=== PATIENT | male | born 1980 | race Caucasian/White ===

== ENCOUNTER 2016-10-06 04:30 | Emergency (ER) | payer OTHER ==
[2016-10-06 05:03] VITALS: BMI 34.9
--- NOTE | 2016-10-06 05:26 | PDOC ---
History of Present Illness - General History Source: Patient Exam Limitations: No Limitations - History of Present Illness Initial Comments: 10/06/16 05:32 The patient is a 35 year old male with a PMHx of kidney stones who presents to the ED with right flank pain that woke him up. He reports associated nausea, but no vomiting. He states the pain is similar to kidney stone in the past. He also complains of right testicular pain. He reports it has been a while since he last had kidney stones. He denies fever, diarrhea. He denies recent travel. <Deb Price - Last Filed: 10/06/16 05:31> - General History Source: Patient <Bryon Fontenot - Last Filed: 10/06/16 19:46> - General Chief Complaint: Pain, Acute Stated Complaint: ABD PAIN Time Seen by Provider: 10/06/16 05:24 Past History <Deb Price - Last Filed: 10/06/16 05:31> - Past Medical History Disorders: Yes Kidney Stones: Yes - Immunization History Immunization Up to Date: Yes - Psycho/Social/Smoking Cessation Hx Anxiety: No Suicidal Ideation: No Smoking Status: No Smoking History: Never smoked Have you smoked in the past 12 months: No Number of Cigarettes Smoked Daily: 0 Information on smoking cessation initiated: No Hx Alcohol Use: No Drug/Substance Use Hx: No Substance Use Type: Marijuana <Bryon Fontneot - Last Filed: 10/06/16 19:46> - Past Medical History Allergies/Adverse Reactions: Allergies Allergy/AdvReac Type Severity Reaction Status Date / Time diphenhydramine HCl Allergy Verified 10/06/16 05:01 [From Bonilla] Home Medications: Ambulatory Orders Ibuprofen 800 mg PO QID #30 tablet 10/06/16 Oxycodone HCl/Acetaminophen [Percocet 5-325 mg Tablet] 1 tab PO Q4H #10 tablet MDD 4 10/06/16 Tamsulosin HCl [Flomax] 0.4 mg PO DAILY #14 cap.er.24h 10/06/16 Review of Systems - Review of Systems Comments:: 10/06/16 05:32 CONSTITUTIONAL: Absent: fever, no chills, no fatigue EYES: Absent: visual changes ENT: Absent: ear pain, no sore throat CARDIOVASCULAR: Absent: chest pain, no palpitations RESPIRATORY: Absent: cough, no SOB GI: Present: nausea Absent: abdominal pain, vomiting, constipation, diarrhea GENITOURINARY: Presnt: right flank pain, right testicular pain Absent: dysuria, no frequency, no hematuria MUSCULOSKELETAL: Absent: back pain, no arthralgia, no myalgia SKIN: Absent: rash NEURO: Absent: headache <Deb Price - Last Filed: 10/06/16 05:31> *Physical Exam - Vital Signs Last Vital Signs Temp Pulse Resp BP Pulse Ox 98.7 F 91 H 14 149/101 100 10/06/16 05:01 10/06/16 05:01 10/06/16 05:01 10/06/16 05:01 10/06/16 05:01 - Physical Exam Comments: 10/06/16 05:33 GENERAL: Well-appearing, well-nourished. No apparent distress. HEENT: Normocephalic, atraumatic. PERRL, EOM intact. CARDIOVASCULAR: Normal S1, S2. Regular rate and rhythm. PULMONARY: Clear to auscultation bilaterally. ABDOMEN: Soft, non-distended. Right CVA tenderness, right RLQ tenderness. EXTREMITIES: Normal ROM in all four extremities. No gross deformities. SKIN: Warm, dry. No rash NEUROLOGICAL: No focal neurological deficits. <Deb Price - Last Filed: 10/06/16 05:31> - Vital Signs Last Vital Signs Temp Pulse Resp BP Pulse Ox 98.7 F 91 H 14 149/101 100 10/06/16 05:01 10/06/16 05:01 10/06/16 05:01 10/06/16 05:01 10/06/16 05:01 <Bryon Fontenot - Last Filed: 10/06/16 19:46> Medical Decision Making - Medical Decision Making 10/06/16 19:46 Dr. Fontenot: The scribe's documentation has been prepared under my direction and personally reviewed by me in its entirery. I confirm that the note above accurately reflects all work, treatment, procedures, and medical decision making performed by me. <Bryon Fontenot - Last Filed: 10/06/16 19:46> *DC/Admit/Observation/Transfer - Attestations Scribe Attestion: 10/06/16 05:33 Documentation prepared by Deb Price, acting as medical certification specialist for Bryon Fontenot MD/DO. <Deb Price - Last Filed: 10/06/16 05:31> - Discharge Dispostion Admit: No <Bryon Fontenot - Last Filed: 10/06/16 19:46> Diagnosis at time of Disposition: Nephrolithiasis - Discharge Dispostion Disposition: HOME Condition at time of disposition: Stable - Prescriptions Prescriptions: Tamsulosin HCl [Flomax] 0.4 mg PO DAILY #14 cap.er.24h Ibuprofen 800 mg PO QID #30 tablet Oxycodone HCl/Acetaminophen [Percocet 5-325 mg Tablet] 1 tab PO Q4H #10 tablet MDD 4 - Referrals Referrals: Aracelis Rios MD [Primary Care Provider] - - Patient Instructions Printed Discharge Instructions: DI for Kidney Stones Additional Instructions: You have kidney stones. You may follow-up with a urologist: Dr Farrell-- call [phone] for an appointment. You are being discharge on 3 medications: Flomax (to help the stones pass) 0.4mg--take one tablet daily for the next 2 weeks. Ibnuprofen 800mg--take one tablet every 6-8 hours as needed for pain. Should the ibuprofen not relive your pain, you may take percocet--one tablet every 4-6 hours. Please return to the ED if your symptoms persist, worsen or new symptoms arise.
[2016-10-06] MEDS ORDERED: KETOROLAC TROMETHAMINE 60 MG/2 ML VIAL IM ONE (05:28)
[2016-10-06] MEDS ORDERED: KETOROLAC TROMETHAMINE 60 MG/2 ML VIAL ONE (05:43)
[2016-10-06 06:36] LABS: URINE APPEARANCE CLEAR; URINE BILIRUBIN NEGATIVE (NEGATIVE); URINE BLOOD 3+ (NEGATIVE); URINE COLOR YELLOW; URINE GLUCOSE (UA) NEGATIVE (NEGATIVE); URINE KETONE NEGATIVE (NEGATIVE); URINE LEUK ESTERASE NEGATIVE (NEGATIVE); URINE NITRITE NEGATIVE (NEGATIVE); URINE PROTEIN NEGATIVE (NEGATIVE); URINE UROBILINOGEN NEGATIVE mg/dL (0.2-1.0)
[2016-10-06 07:25] LABS: CALCIUM OXALATE CRYSTALS FEW /hpf (NONE SEEN); URINE MUCUS RARE; URINE RBC 582 /hpf (0-3); URINE WBC 3 /hpf (3-5)
--- NOTE | 2016-10-06 08:55 | PDOC ---
*Physical Exam - Vital Signs Last Vital Signs Temp Pulse Resp BP Pulse Ox 98.7 F 91 H 22 150/116 98 10/06/16 05:01 10/06/16 06:20 10/06/16 06:20 10/06/16 06:20 10/06/16 07:39 ED Treatment Course - ADDITIONAL ORDERS Additional order review: Laboratory Results 10/06/16 06:15 Urine Color Yellow Urine Appearance Clear Urine pH 5.0 Urine Protein Negative Urine Glucose (UA) Negative Urine Ketones Negative Urine Blood 3+ H Urine Nitrite Negative Urine Bilirubin Negative Urine Urobilinogen Negative Ur Leukocyte Esterase Negative Urine RBC 582 Urine WBC 3 Calcium Oxalate Crystal Few Urine Mucus Rare - Medications Given in the ED: ED Medications Discontinued Medications Generic Name Dose Route Start Last Admin Trade Name Pablo PRN Reason Stop Dose Admin Ketorolac Tromethamine 60 mg 10/06/16 05:28 10/06/16 05:55 Toradol Injection - IM 10/06/16 05:29 60 mg ONCE ONE Administration Progress Note - Progress Note Progress Note: The patient was endorsed to me at [address] Sebastian Mi. The patient presented to the emergency department with right-sided abdominal and flank pain. CT scan shows a +2.5 mm obstructing stone with some hydronephrosis. I have re-evaluated the patient at this time and he is pain-free, feels well and wants to go home. I 've discussed all of the patient's results with the patient. I have advised the patient to follow-up with a urologist and he is being prescribed Flomax ibuprofen and Percocet for breakthrough pain. I have also advised the patient to return to the emergency department if his symptoms persist, worsen, or new symptoms arise. *DC/Admit/Observation/Transfer Diagnosis at time of Disposition: Nephrolithiasis - Discharge Dispostion Disposition: HOME Condition at time of disposition: Stable Admit: No - Prescriptions Prescriptions: Tamsulosin HCl [Flomax] 0.4 mg PO DAILY #14 cap.er.24h Ibuprofen 800 mg PO QID #30 tablet Oxycodone HCl/Acetaminophen [Percocet 5-325 mg Tablet] 1 tab PO Q4H #10 tablet MDD 4 - Referrals Referrals: Aracelis Rios MD [Primary Care Provider] - - Patient Instructions Printed Discharge Instructions: DI for Kidney Stones Additional Instructions: You have kidney stones. You may follow-up with a urologist: Dr Farrell-- call [phone] for an appointment. You are being discharge on 3 medications: Flomax (to help the stones pass) 0.4mg--take one tablet daily for the next 2 weeks. Ibnuprofen 800mg--take one tablet every 6-8 hours as needed for pain. Should the ibuprofen not relive your pain, you may take percocet--one tablet every 4-6 hours. Please return to the ED if your symptoms persist, worsen or new symptoms arise. - Post Discharge Activity
[2016-10-06 09:05] VITALS: BP 140/81; PULSE 71; TEMP 98
== END 2016-10-06 09:05 | disposition home or self-care (01) ==
LOC: JER 04:30
PROC: 3E0233Z Introduction of Anti-inflammatory into Muscle, Percutaneous Approach (ICD-10-PCS; principal; 2016-10-06)
DX: N20.0 Calculus of kidney (principal); Z87.442 Personal history of urinary calculi
CPT/HCPCS: 74176; 81003; 81015; 87086; 99282-25

== ENCOUNTER 2016-12-05 12:23 | Day surgery (SDC) | payer OTHER ==
[2016-12-01 13:28] VITALS: BMI 33.4
[2016-12-05] MEDS ORDERED: MIDAZOLAM HCL 2 MG/2 ML SINGLE DOSE VIAL ONE (13:19)
[2016-12-05] MEDS ORDERED: LEVOFLOXACIN 500 MG PREMIX BAG IVPB ONE (13:22)
[2016-12-05] MEDS ORDERED: ONDANSETRON 4 MG/2 ML VIAL IVPUSH PRN (13:25)
[2016-12-05] MEDS ORDERED: oxyCODONE HCL 5 MG TABLET PO PRN (13:25)
[2016-12-05] MEDS ORDERED: PROMETHAZINE HCL 25 MG/1 ML VIAL IVPUSH PRN (13:25)
[2016-12-05] MEDS ORDERED: PROPOFOL 20 ML ONE (13:27)
[2016-12-05] MEDS ORDERED: LACTATED RINGERS SOLUTION 1,000 ML IV SCH (13:30)
[2016-12-05 15:51] VITALS: TEMP 98.7
[2016-12-05 16:14] VITALS: BP 124/82; PULSE 62
--- NOTE | 2016-12-05 16:45 | OP ---
Operative Note - Note: Operative Date: 12/05/16 Pre-Operative Diagnosis: right renal stone Operation: right eswl Findings: 8mm right mid pole stone Post-Operative Diagnosis: Same as Pre-op Surgeon: Steve Topete Anesthesia: General
--- NOTE | 2016-12-06 14:42 | OP ---
DATE OF OPERATION: 12/05/2016 PREOPERATIVE DIAGNOSIS: Right renal stone. POSTOPERATIVE DIAGNOSIS: Right renal stone. PROCEDURE: Right extracorporeal shockwave lithotripsy. ATTENDING: Steve Topete MD ANESTHESIA: General. OPERATION: Patient was brought in the operating room and placed in the supine position on the operating room table. Ultrasonography and fluoroscopy were performed. An 8-mm right mid pole stone was noted. The patient was then given general anesthesia and preoperative antibiotics. Extracorporeal shockwave lithotripsy was then started; 3000 impulses at 20 joules of power were administered to the stone. The patient tolerated the procedure very well. There were no complications noted. DISPOSITION OF PATIENT: To recovery room. Tee DEL [id number]
== END 2016-12-05 16:26 | disposition home or self-care (01) ==
LOC: JASU-SURG 12:23
PROVIDERS: ATTEND Urology
PROC: 0TF3XZZ Fragmentation in Right Kidney Pelvis, External Approach (ICD-10-PCS; principal; 2016-12-05 14:00)
DX: N20.0 Calculus of kidney (principal)
CPT/HCPCS: 94760

== ENCOUNTER 2018-09-30 18:28 | Emergency (ER) | payer SELFPAY ==
[2018-09-30 18:38] VITALS: BMI 34.9
--- NOTE | 2018-09-30 19:38 | PDOC ---
History of Present Illness <Samantha Jensen - Last Filed: 09/30/18 22:13> - General History Source: Patient Exam Limitations: No Limitations - History of Present Illness Initial Comments: 09/30/18 19:30 Patient is a 37 year old male with h/o kidney stone, lithotripsy, stent is here with c/o right back flank pain x 1 week. States the pain intermittent, 8/10 pressure like, worse in the morning up getting up from beds and with taking a deep breath. Denies dysuria, hematuria, fever, chills. Also c/o left leg pain behind the knee x 2-3 months[address] Patient drives for a living long distance. States the pain occurs when he gets out of the vehicle not while driving. Took Aleve 1 tab po without relief of symptoms. URO: [place] PMHX: as above PSOCHX: occ MJ, neg cig, neg etoh ALL: bendaryl GENERAL/CONSTITUTIONAL: No fever or chills. No weakness. No weight change. HEAD, EYES, EARS, NOSE AND THROAT: No change in vision. No ear pain or discharge. No sore throat. CARDIOVASCULAR: No chest pain or shortness of breath. RESPIRATORY: No cough, wheezing, or hemoptysis. GASTROINTESTINAL: No nausea, vomiting, diarrhea or constipation. No rectal bleeding. GENITOURINARY: No dysuria, frequency, or change in urination. MUSCULOSKELETAL: (+) joint or muscle swelling or pain. No neck or back pain. SKIN AND BREASTS: No rash or easy bruising. NEUROLOGIC: No headache, vertigo, loss of consciousness, or loss of sensation. PSYCHIATRIC: No depression or anxiety. ENDOCRINE: No increased thirst. No abnormal weight change. HEMATOLOGIC/LYMPHATIC: No anemia, easy bleeding, or history of blood clots. ALLERGIC/IMMUNOLOGIC: No hives or skin allergy. No latex allergy. GENERAL: The patient is awake, alert, and fully oriented, in no acute distress. HEAD: Normal with no signs of trauma. EYES: Pupils equal, round and reactive to light, extraocular movements intact, sclera anicteric, conjunctiva clear. ENT: Ears normal, nares patent, oropharynx clear without exudates. Moist mucous membranes. NECK: Normal range of motion, supple without lymphadenopathy, JVD, or masses. LUNGS: Breath sounds equal, clear to auscultation bilaterally. No wheezes, and no crackles. HEART: Regular rate and rhythm, normal S1 and S2 without murmur, rub. ABDOMEN: Soft, nontender, normoactive bowel sounds. No guarding, no rebound. No masses. EXTREMITIES: Normal range of motion, no edema. No clubbing or cyanosis. No cords, erythema, (+) tenderness posterior right knee. BACK: (+) tenderness right paraspinal NEUROLOGICAL: Cranial nerves II through XII grossly intact. Normal speech, normal gait. PSYCH: Normal mood, normal affect. SKIN: Warm, Dry, normal turgor, no rashes or lesions noted. <Basilio Antony - Last Filed: 10/01/18 01:19> - General Chief Complaint: Pain Stated Complaint: BACK PAIN Time Seen by Provider: 09/30/18 19:26 Past History <Samantha Jensen - Last Filed: 09/30/18 22:13> - Past Medical History Anemia: No Asthma: No Cancer: No Cardiac Disorders: No CVA: No COPD: No CHF: No Dementia: No Diabetes: No GI Disorders: No Disorders: Yes (KIDNEY STONE) HTN: Yes (BORDERLINE) Hypercholesterolemia: No Kidney Stones: Yes Liver Disease: No Seizures: No Thyroid Disease: No - Immunization History Immunization Up to Date: Yes - Suicide/Smoking/Psychosocial Hx Smoking Status: No Smoking History: Never smoked Have you smoked in the past 12 months: No Number of Cigarettes Smoked Daily: 0 Hx Alcohol Use: No Drug/Substance Use Hx: No Substance Use Type: Marijuana Hx Substance Use Treatment: No <Basilio Antony - Last Filed: 10/01/18 01:19> - Past Medical History Allergies/Adverse Reactions: Allergies Allergy/AdvReac Type Severity Reaction Status Date / Time diphenhydramine HCl Allergy Verified 09/30/18 18:38 [From Benadryl] Home Medications: Ambulatory Orders Cyclobenzaprine HCl [Flexeril 10 mg] 10 mg PO HS PRN #10 tablet 09/25/17 Ibuprofen [Motrin -] 600 mg PO TID #30 tablet 09/25/17 *Physical Exam - Vital Signs Last Vital Signs Temp Pulse Resp BP Pulse Ox 98.1 F 76 16 136/92 97 09/30/18 20:07 09/30/18 22:10 09/30/18 22:10 09/30/18 22:10 09/30/18 22:10 <Samantha Jensen - Last Filed: 09/30/18 22:13> - Vital Signs Last Vital Signs Temp Pulse Resp BP Pulse Ox 98.8 F 78 18 152/105 H 99 09/30/18 18:33 09/30/18 18:33 09/30/18 18:33 09/30/18 18:33 09/30/18 18:33 <Basilio Antony - Last Filed: 10/01/18 01:19> ED Treatment Course - ADDITIONAL ORDERS Additional order review: Laboratory Results 09/30/18 20:14 Urine Color Yellow Urine Appearance Clear Urine pH 7.0 D Ur Specific [place] 1.024 Urine Protein Negative Urine Glucose (UA) Negative Urine Ketones Negative Urine Blood Negative Urine Nitrite Negative Urine Bilirubin Negative Urine Urobilinogen 1.0 Ur Leukocyte Esterase Negative - Medications Given in the ED: ED Medications Discontinued Medications Generic Name Dose Route Start Last Admin Trade Name Pablo PRN Reason Stop Dose Admin Ketorolac Tromethamine 30 mg 09/30/18 19:59 09/30/18 20:15 Toradol Injection - IM 09/30/18 20:00 30 mg ONCE ONE Administration <Samantha Jensen - Last Filed: 09/30/18 22:13> - RADIOLOGY Radiology Studies Ordered: Category Date Time Status CHEST PA & LAT [RAD] Stat Radiology 09/30/18 19:26 Ordered DUPLEX VASCUL US-1 LEG [US] Stat Ultrasound 09/30/18 19:25 Ordered <Basilio Antony - Last Filed: 10/01/18 01:19> Medical Decision Making - Medical Decision Making Patient Name: JASMIN BARTON THIS IS A PRELIMINARY REPORT FROM [facility] DATE OF SERVICE: 2018-09-30 20:36:12 IMAGES: 21 EXAM: DUPLEX VASCULAR US-1 LEG HISTORY: Left lower extremity pain. COMPARISON: None. FINDINGS: There is compressibility of the left common femoral, superficial femoral, popliteal and visualized calf veins, without apparent intraluminal thrombus formation. On Doppler evaluation, venous flow with respiratory variation is noted. IMPRESSION: No evidence of deep venous thrombosis on this study. CXR appears normal; tspine on the cxr appears normal 09/30/18 22:13 <Samantha Jensen - Last Filed: 09/30/18 22:13> - Medical Decision Making 09/30/18 19:30 Patient is a 37 year old male with h/o kidney stone, lithotripsy, stent is here with c/o right back flank pain x 1 week. States the pain intermittent, 8/10 pressure like, worse in the morning up getting up from beds and with taking a deep breath. Denies dysuria, hematuria, fever, chills. Also c/o left leg pain behind the knee x 2-3 months[address] drives for a living long distance. States the pain occurs when he gets out of the vehicle not while driving. Took Aleve without relief of symptoms. Symptoms consistent with muscle pain R/O kidney stone, Leg pain r/o dvt pain meds 09/30/18 21:18 Patient Full Name: MICK CASTELLANOS Patient Accession No: [id number] Patient : 1980 Reason for Exam: leg pain Referring Physician: Patient Name: JASMIN BARTON THIS IS A PRELIMINARY REPORT FROM [facility] DATE OF SERVICE: 2018-09-30 20:36:12 IMAGES: 21 EXAM: DUPLEX VASCULAR US-1 LEG HISTORY: Left lower extremity pain. COMPARISON: None. FINDINGS: There is compressibility of the left common femoral, superficial femoral, popliteal and visualized calf veins, without apparent intraluminal thrombus formation. On Doppler evaluation, venous flow with respiratory variation is noted. IMPRESSION: No evidence of deep venous thrombosis on this study. CXR neg THIS DOCUMENT HAS BEEN ELECTRONICALLY SIGNED Rivera Mccauley MD 09/30/2018 21:00 MALGORZATA Oliveira Please call [facility] [phone] ([phone]) with questions. INTERPRETING RADIOLOGIST: Rivera Mccauley MD Electronically Signed: Sep 30, 2018 09:00PM EDT Patient given Toradol for pain Selected Entries 09/30/18 09/30/18 20:07 22:10 Temperature 98.1 F Pulse Rate [ 76 Right Radial] Respiratory 16 Rate Blood Pressure 136/92 [Left Arm] O2 Sat by Pulse 97 Oximetry (%) I discussed the physical exam findings, ancillary test results and final diagnoses with the patient. I answered all of the patient's questions. The patient was satisfied with the care received and felt comfortable with the discharge plan and treatment plan. The Patient agrees to follow up with the primary care physician within 24-72 hours <Basilio Antony - Last Filed: 10/01/18 01:19> *DC/Admit/Observation/Transfer <CamilaSamantha - Last Filed: 09/30/18 22:13> <Basilio Antony - Last Filed: 10/01/18 01:19> Diagnosis at time of Disposition: Flank pain Back pain Qualifiers: Back pain location: low back pain Chronicity: unspecified Back pain laterality : right Sciatica presence: without sciatica Qualified Code(s): M54.5 - Low back pain - Discharge Dispostion Disposition: HOME Condition at time of disposition: Stable - Patient Instructions Printed Discharge Instructions: DI for Flank Pain Additional Instructions: Your Discharge Instructions: You must call primary care physician within 24 hours to arrange follow-up. Return to the Emergency Department with any new, persistent or worsening symptoms, for fever, chills, SOB, dizziness or any other concerning changes that may occur.
[2018-09-30] MEDS ORDERED: KETOROLAC TROMETHAMINE 30 MG/1 ML VIAL IM ONE (19:59)
[2018-09-30 20:08] VITALS: TEMP 98.1
[2018-09-30] MEDS ORDERED: KETOROLAC TROMETHAMINE 30 MG/1 ML VIAL ONE (20:09)
[2018-09-30 20:42] LABS: URINE APPEARANCE CLEAR; URINE BILIRUBIN NEGATIVE (NEGATIVE); URINE COLOR YELLOW; URINE GLUCOSE (UA) NEGATIVE (NEGATIVE); URINE KETONE NEGATIVE (NEGATIVE); URINE LEUK ESTERASE NEGATIVE (NEGATIVE); URINE NITRITE NEGATIVE (NEGATIVE); URINE PROTEIN NEGATIVE (NEGATIVE)
[2018-09-30 22:10] VITALS: BP 136/92; PULSE 76
== END 2018-09-30 22:27 | disposition home or self-care (01) ==
LOC: JER 18:28
PROC: 3E0233Z Introduction of Anti-inflammatory into Muscle, Percutaneous Approach (ICD-10-PCS; principal; 2018-09-30)
DX: M54.5 Low back pain (principal); R10.31 Right lower quadrant pain
CPT/HCPCS: 71046-TC-FY; 81003; 93971-TC; 99282-25